=== PATIENT | female | born 1935 | race Caucasian/White ===

== ENCOUNTER 2023-03-01 08:13 | Day surgery (SDC) | payer MEDICARE, OTHER ==
[2023-03-01] MEDS ORDERED: Midazolam 1 MG/ML 2 ML SDV ONE (08:28)
[2023-03-01] MEDS ORDERED: Propofol 200 MG/20 ML SDV ONE ×2 (08:28→08:36)
[2023-03-01] MEDS ORDERED: Lactated Ringers 1,000 ML IV SCH (08:45)
[2023-03-01] MEDS ORDERED: Sodium Chloride 0.9% 10 ML Syringe FLUSH PRN (08:45)
[2023-03-01] MEDS ORDERED: Lidocaine 2% 5 ML SDV ONE (11:02)
[2023-03-01] MEDS ORDERED: Glycopyrrolate 0.2 MG/ML SDV ONE (11:02)
== END 2023-03-01 12:25 | disposition home or self-care (01) ==
LOC: LL.SDS 08:13
PROVIDERS: ATTEND Surgery
DX: D12.8 Benign neoplasm of rectum (principal); K29.50 Unspecified chronic gastritis without bleeding; K44.9 Diaphragmatic hernia without obstruction or gangrene; K21.9 Gastro-esophageal reflux disease without esophagitis; E78.00 Pure hypercholesterolemia, unspecified; I10 Essential (primary) hypertension; E03.9 Hypothyroidism, unspecified; E87.6 Hypokalemia; Z79.890 Hormone replacement therapy; Z79.899 Other long term (current) drug therapy; Z91.018 Allergy to other foods; Z88.8 Allergy status to other drugs, medicaments and biological substances
CPT/HCPCS: 00813; J2250; J2704; J3490; J7120